=== PATIENT | female | born 1965 | race Caucasian/White ===

== ENCOUNTER 2018-08-02 00:57 | Emergency (ER) | payer MEDICAID ==
[~2018-08-02] VITALS: Ht 152.4 cm; Wt 73.1 kg
[~2018-08-02 00:57] MED LIST: IBUP-1986 PO; LEVO750T46 PO
[2018-08-02 01:07] VITALS: BP 125/75
== END 2018-08-02 02:56 | disposition home or self-care (01) ==
LOC: ER 00:58
DX: M67.442 Ganglion, left hand (principal); Z90.89 Acquired absence of other organs; Z79.899 Other long term (current) drug therapy
CPT/HCPCS: 20612; 99284

== ENCOUNTER 2019-03-20 04:44 | Emergency (ER) | payer MEDICAID ==
[~2019-03-20] VITALS: Ht 165.1 cm; Wt 72.7 kg
[2019-03-20 04:48] VITALS: BP 148/88
[2019-03-20] MEDS ORDERED: IBUP-1984 PO (05:57)
== END 2019-03-20 06:11 | disposition home or self-care (01) ==
LOC: ER 04:45
DX: M25.561 Pain in right knee (principal); Z90.89 Acquired absence of other organs; Z79.899 Other long term (current) drug therapy
CPT/HCPCS: 73564; 99283

== ENCOUNTER 2019-03-22 12:41 | Emergency (ER) | payer MEDICAID ==
[~2019-03-22] VITALS: Ht 165.1 cm; Wt 78.0 kg
[~2019-03-22 12:41] MED LIST changes: +IBUP-1984 PO
[2019-03-22 12:52] VITALS: BP 112/77
[2019-03-22] MEDS ORDERED: DICL25TA12 PO (14:05)
== END 2019-03-22 15:04 | disposition home or self-care (01) ==
LOC: ER 12:42
DX: M25.561 Pain in right knee (principal); Z98.890 Other specified postprocedural states; Z79.899 Other long term (current) drug therapy; X50.1XXA Overexertion from prolonged static or awkward postures, initial encounter; Y93.89 Activity, other specified; Y92.89 Other specified places as the place of occurrence of the external cause; Y99.8 Other external cause status
CPT/HCPCS: 29505; 99283

== ENCOUNTER 2022-11-27 18:33 | Emergency (ER) | payer MEDICAID ==
[~2022-11-27] VITALS: Ht 165.1 cm; Wt 65.9 kg
[~2022-11-27 18:33] MED LIST changes: +DICL25TA12 PO; -IBUP-1984 PO; -LEVO750T46 PO; +LEVO750T68 PO
[2022-11-27 18:48] VITALS: BP 120/80; PULSE 119; RESP 18; TEMP 99.4; O2SAT 98
[2022-11-28] MEDS ORDERED: ondansetron 4mg rapidly disintigrating tab PO ONE (00:15)
[2022-11-28] MEDS ORDERED: amox tr/potassium clavulanate 875/125mg TAB PO ONE (00:15)
[2022-11-28] MEDS ORDERED: acetaminophen 325mg tablet PO ONE (00:15)
[2022-11-28] MEDS ORDERED: ibuprofen tablet 400 MG TABLET PO ONE (00:15)
[2022-11-28] MEDS ORDERED: AMOX-419 PO (00:16)
== END 2022-11-28 00:54 | disposition home or self-care (01) ==
LOC: ER 18:34
DX: K08.89 Other specified disorders of teeth and supporting structures (principal); Z79.2 Long term (current) use of antibiotics; Z79.899 Other long term (current) drug therapy
CPT/HCPCS: 99284

== ENCOUNTER 2024-06-03 11:29 | Emergency (ER) | payer MEDICAID ==
[~2024-06-03] VITALS: Ht 165.1 cm; Wt 69.3 kg
[2024-06-03 11:58] VITALS: BP 120/75; PULSE 78; TEMP 97.7; O2SAT 99
[2024-06-03 13:27] VITALS: RESP 16
[2024-06-03] MEDS ORDERED: ibuprofen tablet 400 MG TABLET PO ONE (13:55)
[2024-06-03] MEDS: acetaminophen 325mg tablet PO ONE (14:05)
[2024-06-03] MEDS: ibuprofen 200mg tablet PO ONE (14:05)
== END 2024-06-03 16:20 | disposition home or self-care (01) ==
LOC: ER 11:29
DX: B34.9 Viral infection, unspecified (principal); Z90.89 Acquired absence of other organs; Z79.1 Long term (current) use of non-steroidal anti-inflammatories (NSAID); Z79.899 Other long term (current) drug therapy
CPT/HCPCS: 87502; 87503; 99283